=== PATIENT | male | born 1970 | race Caucasian/White ===

== ENCOUNTER 2019-03-07 19:33 | Emergency (ER) | payer OTHER ==
[2019-03-07] MEDS ORDERED: ONDANSETRON INJ 4 MG/2 ML VIAL IV ONE (19:51)
[2019-03-07] MEDS ORDERED: SODIUM CHLORIDE 0.9% 1000ML 1,000 ML IVS ONE (19:51)
[2019-03-07] MEDS ORDERED: SODIUM CHLORIDE 0.9% (FLUSH) 10 ML SYG IV PRN (19:51)
--- NOTE | 2019-03-07 19:52 | ED.PDOC ---
History of Present Illness - General Chief Complaint: GI Problem Stated Complaint: abd pain and vomiting Time Seen by Provider: 03/07/19 19:52 Information Source: patient Exam Limitations: no limitations - History of Present Illness Initial Comments: Chris Muñoz 49 y/o male came to ER with several episodes of vomiting the last 2 days and sharp pains upper abdomen;stated unable to keep anything down.Denies diarrhea,hematemesis,blood in stool or heavy drinking. Abdominal Pain Onset Location: other - upper abdomen Pain Radiation: no radiation Quality: moderate, sharpness Timing/Duration: days - 2 Improving Factors: nothing Worsening Factors: eating Associated Symptoms: denies symptoms Review of Systems - Review of Systems Constitutional: States: no symptoms reported EENTM: States: no symptoms reported Respiratory: States: no symptoms reported Cardiology: States: no symptoms reported Gastrointestinal/Abdominal: States: see HPI Genitourinary: States: no symptoms reported Musculoskeletal: States: no symptoms reported All other Systems: Reviewed and Negative, No Change from Baseline Past Medical History (General) - Patient Medical History Hx Seizures: No Hx Stroke: No Hx Dementia: No Hx Asthma: No Hx of COPD: No Hx Cardiac Disorders: No Hx Congestive Heart Failure: No Hx Pacemaker: No Hx Hypertension: No Hx Thyroid Disease: No Hx Diabetes: No Hx Gastroesophageal Reflux: No Hx Renal Disease: No Hx Cancer: No Hx of HIV: No Hx Hepatitis C: No Hx MRSA: No Surgical History: other - right carpal tunnel surgery - Vaccination History Hx Tetanus, Diphtheria Vaccination: Yes Hx Influenza Vaccination: Yes Hx Pneumococcal Vaccination: Yes - Social History Hx Tobacco Use: Yes Hx Chewing Tobacco Use: Yes - 1 can per 2-3 days Hx Alcohol Use: No Hx Substance Use: No Hx Substance Use Treatment: No Hx Depression: Yes Hx Physical Abuse: No Hx Emotional Abuse: No Hx Suspected Abuse: No - Female History Patient : No Family Medical History - Family History Father Hx Family Cancer: Yes - throat Mother Living Status: Unknown Hx Family Cancer: Yes - Dad Throat cancer Physical Exam - Physical Exam General Appearance: Alert, Comfortable, No apparent distress Eyes, Ears, Nose, Throat Exam: PERRL/EOMI, normal ENT inspection, TMs normal, pharynx normal Neck: non-tender, supple, normal inspection Respiratory: chest non-tender, lungs clear, normal breath sounds, no respiratory distress Cardiovascular/Chest: normal peripheral pulses, regular rate, rhythm, no murmur Peripheral Pulses: No deficit Gastrointestinal/Abdominal: normal bowel sounds, soft, tenderness - upper abdomen no peritoneal signs Back Exam: no CVA tenderness, no vertebral tenderness Extremity: no pedal edema, no calf tenderness Neurologic: alert, normal mood/affect, oriented x 3 Skin Exam: normal color, warm/dry Lymphatic: no adenopathy Progress - Progress Progress: 03/07/19 20:41 Vital Signs - 8 hr 03/07/19 19:41 Temperature 98.8 F Pulse Rate [ 69 Left Brachial] Respiratory 20 Rate Blood Pressure 157/97 [Left Arm] O2 Sat by Pulse 98 Oximetry - Results/Orders Results/Orders: 03/07/19 19:51 IV Care:Saline Lock per Protoc QSHIFT Sodium Chloride 0.9% (Flush) [Saline Flush Syringe] 10 ml IV PRN PRN 03/07/19 20:00 EKG STAT Laboratory Results - last 24 hr 03/07/19 03/07/19 03/07/19 19:58 19:58 19:58 WBC 7.8 RBC 5.21 Hgb 16.0 Hct 47.6 MCV 91.4 MCH 30.8 MCHC 33.7 RDW 12.5 Plt Count 214 MPV 10.1 Absolute Neuts (auto) 5.10 Absolute Lymphs (auto) 1.90 Absolute Monos (auto) 0.60 Absolute Eos (auto) 0.10 Absolute Basos (auto) 0.10 Neutrophils % 66.0 Lymphocytes % 24.2 Monocytes % 7.7 Eosinophils % 1.2 Basophils % 0.9 Sodium 138 Potassium 4.0 Chloride 103 Carbon Dioxide 26 Anion Gap 13.0 BUN 10 Creatinine 1.05 BUN/Creatinine Ratio 9.5 L Random Glucose 106 H Serum Osmolality 275.1 Calcium 9.2 Total Bilirubin 0.9 Direct Bilirubin 0.2 Indirect Bilirubin 0.7 AST 23 ALT 32 Alkaline Phosphatase 87 Serum Total Protein 8.4 H Albumin 4.3 Lipase 27 Urine Color Urine Appearance Urine pH Ur Specific [place] Urine Protein Urine Glucose (UA) Urine Ketones Urine Blood Urine Nitrite Urine Bilirubin Urine Urobilinogen Ur Leukocyte Esterase Urine RBC Urine WBC Ur Epithelial Cells Urine Bacteria 03/07/19 19:58 WBC RBC Hgb Hct MCV MCH MCHC RDW Plt Count MPV Absolute Neuts (auto) Absolute Lymphs (auto) Absolute Monos (auto) Absolute Eos (auto) Absolute Basos (auto) Neutrophils % Lymphocytes % Monocytes % Eosinophils % Basophils % Sodium Potassium Chloride Carbon Dioxide Anion Gap BUN Creatinine BUN/Creatinine Ratio Random Glucose Serum Osmolality Calcium Total Bilirubin Direct Bilirubin Indirect Bilirubin AST ALT Alkaline Phosphatase Serum Total Protein Albumin Lipase Urine Color Yellow Urine Appearance Clear Urine pH 7.0 Ur Specific [place] 1.015 Urine Protein Negative Urine Glucose (UA) Negative Urine Ketones Negative Urine Blood Negative Urine Nitrite Negative Urine Bilirubin Negative Urine Urobilinogen 2.0 H Ur Leukocyte Esterase Negative Urine RBC 0 Urine WBC 0 Ur Epithelial Cells 3-5 Urine Bacteria Rare Discuss test result with patient and family - EKG/XRAY/CT EKG: Sinus, no ST T wave changes Comments: HR-61 Departure - Departure Clinical Impression: Epigastric abdominal pain Gastritis Qualifiers: Gastritis type: unspecified gastritis Chronicity: unspecified Gastritis bleeding: without bleeding Qualified Code(s): K29.70 - Gastritis, unspecified, without bleeding Time of Disposition: 21:27 Disposition: Discharge to Home or Self Care Condition: Fair Departure Forms: ED Discharge - Pt. Copy, Patient Portal Self Enrollment Instructions: [place] Diet, Ulcer and Gastritis Diet, Gastritis (DC) Diet: bland diet, other - Avoid greasy spicy foods Prescriptions: Chlordiazepoxide HCl-Clidinium [Librax] 1 cap PO TID #10 cap Ranitidine HCl 300 mg PO DAILY #30 tab Home Medications: Ambulatory Orders Ibuprofen 800 mg PO TID #20 tab 10/07/14 Chlordiazepoxide HCl-Clidinium [Librax] 1 cap PO TID #10 cap 03/07/19 Ranitidine HCl 300 mg PO DAILY #30 tab 03/07/19 Additional Instructions: Need to sign up with primary Md NICKIE [phone] to emergency room if symptoms wprsens
[2019-03-07] MEDS ORDERED: LACTATED RINGERS 1,000 ML IVS ONE (19:55)
[2019-03-07] MEDS ORDERED: PANTOPRAZOLE INJECTION 80 MG in SODIUM CHLORIDE 0.9% 100ML 80 ML IVPB ONE (20:35)
[2019-03-07] MEDS ORDERED: PANTOPRAZOLE SODIUM IV 40 MG VIAL ONE (21:02)
[2019-03-07] MEDS ORDERED: SODIUM CHLORIDE 0.9% 100ML 100 ML IVPB ONE (21:03)
[2019-03-07 21:15] VITALS: TEMP 98.8
[2019-03-07] MEDS ORDERED: PROCHLORPERAZINE INJ 10 MG/2 ML VIAL IV ONE (21:15)
[2019-03-07 21:16] VITALS: O2SAT 98
[2019-03-07] MEDS ORDERED: LORazepam 0.5 MG TAB PO ONE (21:28)
[2019-03-07] MEDS ORDERED: PROMETHAZINE TAB (ER DISP) 25 MG TAB PO ONE (21:34)
[2019-03-07 21:53] VITALS: BP 162/98
== END 2019-03-07 21:53 | disposition home or self-care (01) ==
LOC: ER 19:33
DX: K29.70 Gastritis, unspecified, without bleeding (principal); F32.9 Major depressive disorder, single episode, unspecified; Z87.891 Personal history of nicotine dependence
CPT/HCPCS: 80048; 80076; 81001; 83690; 85025; 93005; J0780; J2405; J7050; J7120; Q0169